=== PATIENT | female | born 1935 | race Caucasian/White ===

== ENCOUNTER 2019-06-08 07:34 | Day surgery (SDC) | payer MEDICARE ==
[2019-06-07 09:44] VITALS: BMI 27.4
[~2019-06-08 07:34] MED LIST: SODIUM CHLORIDE 0.9% 1,000 ML IV SCH
[2019-06-08] MEDS ORDERED: LACTATED RINGERS 1,000 ML IV SCH (08:15)
[2019-06-08 08:18] VITALS: TEMP 97.6
[2019-06-08] MEDS ORDERED: PROPOFOL 10 MG/ML 20 ML VIAL IV ONE (08:57)
[2019-06-08 09:22] LABS: Calcium 9.5 mg/dL (8.4-10.2); Potassium 2.9 mmol/L (3.5-5.1)
--- NOTE | 2019-06-08 09:43 | ECHOT ---
TRANSESOPHAGEAL ECHOCARDIOGRAM PERFORMING PHYSICIAN: Alfonso Herron MD. PROCEDURE PERFORMED: Transesophageal echocardiogram. INDICATION: Rule out intracardiac thrombus before cardioversion. COMPLICATION: None. LEVEL OF SEDATION: Deep sedation was performed using propofol with LONG LINES OPERATOR in the room. PROCEDURE DESCRIPTION: After obtaining an informed consent, the patient was brought to the recovery area. Pulse oximetry and heart rate monitors were attached to the patient. The patient subsequently was turned into left lateral position. Subsequently the transesophageal echocardiogram was advanced through the bite guard to the mid esophagus where 2D echocardiogram images, color Doppler images, continuous-wave and pulse wave Dopplers were obtained from multiple angles. The procedure was completed without any complication. FINDINGS: The left ventricular dimension and systolic function appeared to be within normal limits. The right ventricle appeared to be mildly dilated. The left atrium is mildly dilated and right atrium is severely dilated. The left atrial appendage appeared to be free from any thrombus. The interatrial septum appeared to be intact without any evidence of shunt. The aortic valve is trileaflet valve without stenosis or regurgitation. The mitral valve appeared to be repaired valve with moderate MR. There was severe tricuspid regurgitation seen. The pulmonary artery systolic pressure was not calculated. CONCLUSION: 1. Intact left atrial appendage without any evidence of thrombus. 2. No any evidence of intracardiac thrombus. 3. Intact interatrial septum without any evidence of shunt. 4. Normal left ventricular dimension and systolic function. 5. Normal right ventricular dimension and systolic function. 6. Mild left atrial dilatation and severe atrial dilatation. 7. Trileaflet aortic valve without stenosis or insufficiency. The aortic valve is calcified. 8. Repaired mitral valve with moderate mitral regurgitation. 9. Severe tricuspid regurgitation. 10.No evidence of pericardial effusion. MMODL / IJN: [id number] /
--- NOTE | 2019-06-08 09:47 | CE ---
CARDIAC ELECTROPHYSIOLOGY REPORT CARDIOVERSION: DATE OF SERVICE: June 08, 2019. PERFORMING PHYSICIAN: Alfonso Herron MD. PROCEDURE PERFORMED: Cardioversion. COMPLICATION: None. LEVEL OF SEDATION: Deep sedation was performed using propofol with WEAVER WIRE LOOM in the room. PROCEDURE DESCRIPTION: After LATISHA was performed and left atrial appendage thrombus and any intracardiac thrombus was ruled out, we did pursue with cardioversion. The patient cardioverted from atrial fibrillation to normal sinus mechanism using 200 joules on first attempt. CONCLUSION: Successful cardioversion of atrial fibrillation to normal sinus mechanism using 200 joules on first attempt. MMODL / IJN: [id number] /
[2019-06-08 10:41] VITALS: BP 101/58; PULSE 52; RESP 18
== END 2019-06-08 11:00 | disposition home or self-care (01) ==
LOC: CATHCVL 07:34
PROVIDERS: ATTEND Internal Medicine Interventional Cardiology
DX: I48.91 Unspecified atrial fibrillation (principal); I08.3 Combined rheumatic disorders of mitral, aortic and tricuspid valves
CPT/HCPCS: 93312; 93320; 93325; 92960; 80048; J2704

== ENCOUNTER 2019-06-26 09:47 | Inpatient (IN) | payer MEDICARE ==
--- NOTE | 2019-06-26 10:41 | XR ---
EXAMINATION TYPE: XR chest 2V DATE OF EXAM: 06/26/2019 COMPARISON: 01/11/2011 HISTORY: 83-year-old female CHF TECHNIQUE: Frontal and lateral views FINDINGS: Median sternotomy wires with annuloplasty ring. Heart mild to moderately enlarged. Diffuse interstiti al density. Small left greater than right pleural effusions with bibasilar opacity. IMPRESSION: 1. Correlate for CHF with pulmonary vascular congestion. 2. Small left greater than right pleural effusions with adjacent atelectasis and/or consolidation.
[2019-06-26 11:04] LABS: Anisocytosis Slight; HCT 40.2 % (34.0-46.0); HGB 12.5 gm/dL (11.4-16.0); Hypochromasia Marked; MCH 26.8 pg (25.0-35.0); MCHC 31.2 g/dL (31.0-37.0); Mean Platelet Volume 9.5; Platelet Count 165 k/uL (150-450); RBC 4.68 m/uL (3.80-5.40); RDW 17.2 % (11.5-15.5); WBC 6.1 k/uL (3.8-10.6)
[2019-06-26 11:14] LABS: Albumin 3.6 g/dL (3.5-5.0); Calcium 9.2 mg/dL (8.4-10.2); Phosphorus 3.7 mg/dL (2.5-4.5); Potassium 3.6 mmol/L (3.5-5.1); Total Bilirubin 2.7 mg/dL (0.2-1.3); Total Protein 6.2 g/dL (6.3-8.2)
[2019-06-26] MEDS ORDERED: NALOXONE 0.4 MG/ML 1 ML VIAL IV PRN (11:29)
[2019-06-26] MEDS ORDERED: CALCIUM CARBONATE 500 MG CHEWABLE PO PRN (11:29)
[2019-06-26] MEDS ORDERED: traMADol 50 MG TAB PO PRN (11:29)
[2019-06-26] MEDS ORDERED: ONDANSETRON 4 MG/2 ML VIAL IVP PRN (11:29)
[2019-06-26] MEDS ORDERED: LACTULOSE 20 GM/30 ML CUP PO PRN (11:29)
[2019-06-26] MEDS ORDERED: MELATONIN 3 MG TABLET PO PRN (11:29)
[2019-06-26] MEDS ORDERED: ACETAMINOPHEN TAB 325 MG TAB PO PRN (11:29)
[2019-06-26] MEDS: POTASSIUM CHLORIDE ER 20 MEQ TAB.ER PO SCH (14:16)
[2019-06-26] MEDS: FUROSEMIDE 100 MG in SODIUM CHLORIDE 0.9% 90 ML IV SCH ×2 (14:16→22:31)
[2019-06-26] MEDS: METOPROLOL TARTRATE 12.5 MG TAB PO SCH ×2 (15:47→21:17)
--- NOTE | 2019-06-26 16:19 | P.HPIM ---
History of Present Illness H&P Date: 06/26/19 Chief Complaint: Short of breath History of presenting complaint: This is a very pleasant 83-year-old patient follows with PCP Dr. Quinonez and heater helper Dr. Herron. Chronic stable medical conditions include, atrial fibrillation depression, COPD, hypertension, coronary artery disease. Patient was sent in from the office of Dr. Merritt after patient progressively has been getting more and more short of breath. No bruits uses 3-4 pillows sometimes even sits up and sleeps. Very slight cough. No fever no chills. Increasing swelling of the lower extremity. Going up to the thighs. Short of breath at rest. Decided to come in. No chest pain. Review of systems: GEN.: Tired EYES: None HEENT: None NECK: None RESPIRATORY: As above CARDIOVASCULAR: As above GASTROINTESTINAL: None GENITOURINARY: None MUSCULOSKELETAL: None LYMPHATICS: None HEMATOLOGICAL: None PSYCHIATRY: A bit anxious NEUROLOGICAL: None Past medical history to include: Atrial fibrillation, COPD, hypertension, coronary artery disease with a bypass Social history: Patient smoked on and off for about 20 years stopped smoking a while ago. Lives with her . No symptoms in alcohol history. Family history: Reviewed, noncontributory to presentation Physical examination: VITAL SIGNS: 97.4, 89, 18, 100/54, 96% on room air] GENERAL: [BMI 28.9, sitting up in bed, short of breath. EYES: Pupils equal. Conjunctiva normal. HEENT: External appearance of nose and ears normal, oral cavity grossly normal. NECK: JVD raised; masses not palpable. HEART: Heart sounds irregular; edema present. LUNGS: Respiratory rate increased; decreased at bases. ABDOMEN: Soft, nontender, liver spleen not palpable, no masses palpable. PSYCH: Alert and oriented x3; mood and affect slightly anxiousl. NEUROLOGICAL: Cranial nerves grossly intact; no facial asymmetry, power and sensation grossly intact. 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 LYMPHATICS: No lymph nodes palpable in the axilla and neck INVESTIGATIONS, reviewed in the clinical context: White count 6.1 hemoglobin 12.5 potassium 3.6 bun 23 creatinine 1.11 proBNP 4790 TSH 1.4 Chest x-ray film personally reviewed by me-cardiomegaly pleural effusion left greater than right and venous prominence Assessment: -Acute on chronic congestive heart failure exacerbation, EF not known -Coronary artery disease a prior history of coronary bypass -Persistent atrial fibrillation, chronically on eliquis -COPD -Essential hypertension - Plan: Patient be started on a Lasix drip 10 mg an hour. Strict I's and O's will be done. Other home medications resumed. Blood pressures running on the lower side. Trial cut back Lopressor 12.5--3 times a day. Cardiology is consulted. Care was discussed with the patient. Question answered. Follow I's closely. Patient is on eliquis. Order 2-D echocardiogram Past Medical History Past Medical History: Atrial Fibrillation, COPD, Hypertension Additional Past Medical History / Comment(s): irregular heart rate, shortness of breath. [email or web address] History of Any Multi-Drug Resistant Organisms: None Reported Past Surgical History: Coronary Bypass/CABG Additional Past Surgical History / Comment(s): 12/07/10 CABG and heart valve ring installed by dr carbajal Past Anesthesia/Blood Transfusion Reactions: No Reported Reaction Smoking Status: Former smoker - Past Family History Mother Family Medical History: No Reported History Medications and Allergies Home Medications Medication Instructions Recorded Confirmed Type Apixaban [Eliquis] 2.5 mg PO BID 06/07/19 06/26/19 History Atorvastatin [Lipitor] 10 mg PO HS 06/07/19 06/26/19 History Diltiazem HCl 60 mg PO Q8H 06/07/19 06/26/19 History Famotidine [Pepcid] 20 mg PO BID 06/07/19 06/26/19 History Ferrous Sulfate [Iron (65 MG 325 mg PO DAILY 06/07/19 06/26/19 History Elemental)] Furosemide [Lasix] 40 mg PO BID 06/07/19 06/26/19 History Metoprolol Tartrate [Lopressor] 150 mg PO BID 06/07/19 06/26/19 History Potassium Chloride [Klor-Con 20] 20 meq PO DAILY 06/07/19 06/26/19 History Allergies Allergy/AdvReac Type Severity Reaction Status Date / Time No Known Allergies Allergy Verified 06/26/19 11:46 Physical Exam Vitals: Intake and Output 06/25/19 06/26/19 06/26/19 22:59 06:59 14:59 Other: # Voids 1 # Bowel Movements 0 Weight 71.7 kg Results CBC & Chem 7: 06/26/19 10:37 04/28/20 10:41 Labs: Abnormal Lab Results - Last 24 Hours (Table) 06/26/19 06/26/19 Range/Units 10:37 10:41 RDW 17.2 H (11.5-15.5) % BUN 23 H (7-17) mg/dL Creatinine 1.11 H (0.52-1.04) mg/dL Glucose 140 H (74-99) mg/dL Total Bilirubin 2.7 H (0.2-1.3) mg/dL Total Protein 6.2 L (6.3-8.2) g/dL
[2019-06-26] MEDS ORDERED: METOPROLOL TARTRATE 50 MG TAB PO SCH (21:00)
[2019-06-26] MEDS ORDERED: FUROSEMIDE 40 MG TAB PO SCH (21:00)
[2019-06-26] MEDS: ATORVASTATIN 10 MG TAB PO SCH (21:17)
[2019-06-26] MEDS: APIXABAN 2.5 MG TABLET PO SCH (21:17)
[2019-06-26] MEDS: FAMOTIDINE 20 MG TAB PO SCH (21:17)
[2019-06-27] MEDS: METOPROLOL TARTRATE 12.5 MG TAB PO SCH (08:13)
[2019-06-27] MEDS: FAMOTIDINE 20 MG TAB PO SCH (08:13)
[2019-06-27] MEDS: APIXABAN 2.5 MG TABLET PO SCH ×2 (08:14→21:06)
[2019-06-27] MEDS: FERROUS SULFATE 325 MG TAB PO SCH (08:14)
[2019-06-27] MEDS: POTASSIUM CHLORIDE ER 20 MEQ TAB.ER PO SCH (08:14)
[2019-06-27] MEDS ORDERED: SPIRONOLACTONE 25 MG TAB PO SCH (10:30)
[2019-06-27 11:01] VITALS: BMI 28.5
--- NOTE | 2019-06-27 12:53 | P.PN ---
<Marilu Ramey - Last Filed: 06/27/19 11:30> Subjective This is Marilu Ramey PA-C scribing on behalf of Dr. Mack The patient was interviewed and examined by Dr. Mack HPI Patient is a 83-year-old female with a history significant for atrial fibrillation, COPD, hypertension, CAD status post CABG, valvular heart disease status post mitral valve repair, former smoker who was directly admitted by Dr. Herron for treatment of diastolic heart failure. She has been started on a Lasix drip. She has lost about 1 kg. Her breathing has improved. She is laying flat in bed. Still feels that her belly is bloated. EXAMINATION: Patient is afebrile, pulse in the 100s, respirations 16, blood pressure 119/70, oxygen saturation 99% on [address] Mack and examined the patient Lungs are clear to auscultation bilaterally Heart is irregular, no audible murmurs prominent JVD abdomen distended Mild lower extremity edema REVIEW OF LABS, ECG & MEDICAL DATA WBC 6.1, hemoglobin 12.5, platelets 165, potassium 3.6, BUN 23, creatinine 1.11 BMP 4790 TSH within normal limits Chest x-ray shows pulmonary vascular congestion, small left greater than right pleural effusions Recent LATISHA shows normal LV size and function, normal RV size and function, moderate MR, severe TR IMPRESSION / ASSESSMENT: Progressive dyspnea and weight gain secondary to acute CHF exacerbation secondary to diastolic dysfunction recent LATISHA showing preserved LV systolic function History of atrial fibrillation, rates in the 100s, anticoagulated with eliquis COPD Hypertension CAD status post CABG history of mitral valve repair Former smoker PLAN: Continue Lasix drip Add spironolactone 25 mg daily to stop potassium supplement Increase metoprolol to 50 mg 3 times a day Monitor daily BMP and magnesium Monitor daily weights and I and O Objective - Vital Signs Vital signs: Vital Signs Temp 97.8 F 06/27/19 08:00 Pulse 101 H 06/27/19 08:00 Resp 16 06/27/19 08:00 BP 119/78 06/27/19 08:00 Pulse Ox 99 06/27/19 08:00 Intake & Output 06/26/19 06/27/19 06/27/19 18:59 06:59 18:59 Intake Total 120 82.5 240 Output Total 400 1101 Balance -280 -1018.5 240 Weight 71.7 kg 70.8 kg Intake: Intake, IV Titration 82.5 Amount Furosemide 100 mg In 82.5 Sodium Chloride 0.9% 90 ml @ 10 MG/HR 10 mls/hr IV .Q10H [facility] Rx#: [id number] Oral 120 240 Output: Urine 400 1101 Other: Voiding Method Toilet # Voids 0 1 # Bowel Movements 0 - Labs CBC & Chem 7: 06/26/19 10:37 06/26/19 10:41 Labs: Abnormal Lab Results - Last 24 Hours (Table) 06/26/19 06/26/19 Range/Units 10:37 10:41 RDW 17.2 H (11.5-15.5) % BUN 23 H (7-17) mg/dL Creatinine 1.11 H (0.52-1.04) mg/dL Glucose 140 H (74-99) mg/dL Total Bilirubin 2.7 H (0.2-1.3) mg/dL Total Protein 6.2 L (6.3-8.2) g/dL <Bossman Mack - Last Filed: 06/27/19 12:53> Objective - Vital Signs Vital signs: Vital Signs Temp 98 F 06/27/19 11:10 Pulse 118 H 06/27/19 11:10 Resp 18 06/27/19 11:10 BP 104/61 06/27/19 11:10 Pulse Ox 99 06/27/19 11:10 Intake & Output 06/26/19 06/27/19 06/27/19 18:59 06:59 18:59 Intake Total 120 82.5 240 Output Total 400 1101 725 Balance -280 -1018.5 -485 Weight 71.7 kg 70.8 kg 70.8 kg Intake: Intake, IV Titration 82.5 Amount Furosemide 100 mg In 82.5 Sodium Chloride 0.9% 90 ml @ 10 MG/HR 10 mls/hr IV .Q10H [facility] Rx#: [id number] Oral 120 240 Output: Urine 400 1101 725 Other: Voiding Method Toilet Toilet # Voids 0 1 # Bowel Movements 0 - Labs CBC & Chem 7: 06/26/19 10:37 06/26/19 10:41
--- NOTE | 2019-06-27 16:01 | P.PN ---
Progress Note - Text Progress Note Date: 06/27/19 Chief Complaint: Short of breath History of presenting complaint: This is a very pleasant 83-year-old patient follows with PCP Dr. Quinonez and dopster Dr. Herron. Chronic stable medical conditions include, atrial fibrillation depression, COPD, hypertension, coronary artery disease. Patient was sent in from the office of Dr. Merritt after patient progressively has been getting more and more short of breath. No bruits uses 3-4 pillows sometimes even sits up and sleeps. Very slight cough. No fever no chills. Increasing swelling of the lower extremity. Going up to the thighs. Short of breath at rest. Decided to come in. No chest pain. Admitted with-acute CHF exacerbation. Start him on Lasix drip. Today-on a Lasix drip. Making good urine. Breathing slightly better. Did tolerate some diet. A. fib heart rate into 1 teens today. Review of systems: Was done for constitutional, cardiovascular, GI, pulmonary. relevant finding as above Active Medications Acetaminophen (Tylenol Tab) 650 mg PO Q6HR PRN PRN Reason: Mild Pain or Fever > 100.5 Apixaban (Eliquis) 2.5 mg PO BID [facility] Last Admin: 06/27/19 08:14 Dose: 2.5 mg Documented by: Atorvastatin Calcium (Lipitor) 10 mg PO HS [facility] Last Admin: 06/26/19 21:17 Dose: 10 mg Documented by: Calcium Carbonate/Glycine (Tums) 1,000 mg PO Q4HR PRN PRN Reason: Dyspepsia Famotidine (Pepcid) 20 mg PO DAILY [facility] Ferrous Sulfate (Feosol) 325 mg PO DAILY [facility] Last Admin: 06/27/19 08:14 Dose: 325 mg Documented by: Furosemide 100 mg/ Sodium (Chloride) 100 mls @ 10 mls/hr IV .Q10H [facility] Last Admin: 06/26/19 22:31 Dose: 10 mg/hr, 10 mls/hr Documented by: Lactulose (Cephulac) 20 gm PO DAILY PRN PRN Reason: Constipation Melatonin (Melatonin) 3 mg PO HS PRN PRN Reason: Insomnia Metoprolol Tartrate (Lopressor) 50 mg PO TID [facility] Naloxone HCl (Narcan) 0.2 mg IV Q2M PRN PRN Reason: Opioid Reversal Ondansetron HCl (Zofran) 4 mg IVP Q8HR PRN PRN Reason: Nausea And Vomiting Spironolactone (Aldactone) 25 mg PO DAILY [facility] Last Admin: 06/27/19 10:39 Dose: 25 mg Documented by: Tramadol HCl (Ultram) 50 mg PO Q6H PRN PRN Reason: Moderate Pain Physical examination: VITAL SIGNS: 98, 118, 18, 104/61, 99% on 2 L GENERAL: Propped up, slightly improved breathing EYES: Pupils equal. Conjunctiva normal. HEENT: External appearance of nose and ears normal, oral cavity grossly normal. NECK: JVD raised; masses not palpable. HEART: Heart sounds irregular; edema present. LUNGS: Respiratory rate increased; decreased at bases. ABDOMEN: Soft, nontender, liver spleen not palpable, no masses palpable. PSYCH: Alert and oriented x3; mood and affect slightly anxiousl. 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 chronically on eliquis -COPD -Essential hypertension -Moderate mitral regurgitation, severe tricuspid regurgitation Plan: Discussed with the patient. Continue with IV Lasix drip. Responding to the same. Does of Lopressor increased by cardiology. Follow electrolytes closely.
[2019-06-27] MEDS: METOPROLOL TARTRATE 50 MG TAB PO SCH ×2 (17:08→21:06)
[2019-06-27] MEDS: FUROSEMIDE 100 MG in SODIUM CHLORIDE 0.9% 90 ML IV SCH ×2 (17:08→21:05)
[2019-06-27] MEDS: ATORVASTATIN 10 MG TAB PO SCH (21:06)
[2019-06-28] MEDS: FUROSEMIDE 100 MG in SODIUM CHLORIDE 0.9% 90 ML IV SCH ×2 (05:22→16:46)
[2019-06-28 07:45] LABS: Calcium 9.1 mg/dL (8.4-10.2); Magnesium 1.9 mg/dL (1.6-2.3); Potassium 3.1 mmol/L (3.5-5.1)
[2019-06-28] MEDS: SPIRONOLACTONE 25 MG TAB PO SCH (09:17)
[2019-06-28] MEDS: FERROUS SULFATE 325 MG TAB PO SCH (09:17)
[2019-06-28] MEDS: METOPROLOL TARTRATE 50 MG TAB PO SCH ×3 (09:17→20:08)
[2019-06-28] MEDS: FAMOTIDINE 20 MG TAB PO SCH (09:17)
[2019-06-28] MEDS: APIXABAN 2.5 MG TABLET PO SCH ×2 (09:17→20:09)
[2019-06-28] MEDS ORDERED: Potassium Replacement Protocol 1 EACH MISC MISCELLANE PRN (12:32)
[2019-06-28] MEDS: POTASSIUM CHLORIDE ER 20 MEQ TAB.ER PO SCH ×3 (13:18→18:00)
--- NOTE | 2019-06-28 13:22 | XR ---
EXAMINATION TYPE: XR chest 2V DATE OF EXAM: 06/28/2019 COMPARISON: Chest x-ray 2 days ago. HISTORY: CHF progress study. TECHNIQUE: Frontal and lateral views of the chest are obtained. FINDINGS: Overlying sternal wires along with metallic cardiac valvular ring redemonstrated. Persiste nt cardiomegaly with atherosclerotic thoracic aorta. Background chronic parenchymal change with impro tito interstitial markings or edema bilaterally. Small left pleural effusion remains present. Persiste nt bibasilar opacities. Osseous structures remain demineralized. IMPRESSION: Improved bilateral diffuse interstitial edema and/or infiltrates. Persistent cardiomegal y with small left pleural effusion and bibasilar acute atelectasis and/or infiltrates.
[2019-06-28] MEDS: ATORVASTATIN 10 MG TAB PO SCH (20:09)
--- NOTE | 2019-06-28 20:23 | P.PN ---
Progress Note - Text Progress Note Date: 06/28/19 Chief Complaint: Short of breath History of presenting complaint: This is a very pleasant 83-year-old patient follows with PCP Dr. Quinonez and porcelain enamel sprayer Dr. Herron. Chronic stable medical conditions include, atrial fibrillation depression, COPD, hypertension, coronary artery disease. Patient was sent in from the office of Dr. Merritt after patient progressively has been getting more and more short of breath. No bruits uses 3-4 pillows sometimes even sits up and sleeps. Very slight cough. No fever no chills. Increasing swelling of the lower extremity. Going up to the thighs. Short of breath at rest. Decided to come in. No chest pain. Admitted with-acute CHF exacerbation. Start him on Lasix drip. Today-remains a Lasix drip. Breathing much improved. Edema was gone down. Over 2000 mL in negative fluid balance. Hearted is still up with A. fib in the 1 teens. Eating fair Review of systems: Was done for constitutional, cardiovascular, GI, pulmonary. relevant finding as above Active Medications Acetaminophen (Tylenol Tab) 650 mg PO Q6HR PRN PRN Reason: Mild Pain or Fever > 100.5 Apixaban (Eliquis) 2.5 mg PO BID [facility] Last Admin: 06/28/19 20:09 Dose: 2.5 mg Documented by: Atorvastatin Calcium (Lipitor) 10 mg PO HS [facility] Last Admin: 06/28/19 20:09 Dose: 10 mg Documented by: Calcium Carbonate/Glycine (Tums) 1,000 mg PO Q4HR PRN PRN Reason: Dyspepsia Famotidine (Pepcid) 20 mg PO DAILY [facility] Last Admin: 06/28/19 09:17 Dose: 20 mg Documented by: Ferrous Sulfate (Feosol) 325 mg PO DAILY [facility] Last Admin: 06/28/19 09:17 Dose: 325 mg Documented by: Furosemide 100 mg/ Sodium (Chloride) 100 mls @ 10 mls/hr IV .Q10H [facility] Last Admin: 06/28/19 16:46 Dose: 10 mg/hr, 10 mls/hr Documented by: Lactulose (Cephulac) 20 gm PO DAILY PRN PRN Reason: Constipation Melatonin (Melatonin) 3 mg PO HS PRN PRN Reason: Insomnia Metoprolol Tartrate (Lopressor) 50 mg PO TID [facility] Last Admin: 06/28/19 20:08 Dose: 50 mg Documented by: Miscellaneous Information (Potassium Per Protocol) 1 each MISCELLANE DAILY PRN; Protocol PRN Reason: Per Protocol Naloxone HCl (Narcan) 0.2 mg IV Q2M PRN PRN Reason: Opioid Reversal Ondansetron HCl (Zofran) 4 mg IVP Q8HR PRN PRN Reason: Nausea And Vomiting Spironolactone (Aldactone) 50 mg PO DAILY [facility] Last Admin: 06/28/19 09:17 Dose: 50 mg Documented by: Tramadol HCl (Ultram) 50 mg PO Q6H PRN PRN Reason: Moderate Pain Physical examination: VITAL SIGNS: 97.5, 95, 14, 115/70, 95% on room air GENERAL: Sitting up, breathing better EYES: Pupils equal. Conjunctiva normal. HEENT: External appearance of nose and ears normal, oral cavity grossly normal. NECK: JVD raised; masses not palpable. HEART: Heart sounds irregular; decreased edema. LUNGS: Respiratory rate increased; decreased at bases. ABDOMEN: Soft, nontender, liver spleen not palpable, no masses palpable. PSYCH: Alert and oriented x3; mood and affect slightly anxiousl. 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 INVESTIGATIONS, reviewed in the clinical context: Potassium 3.1 bun 21 creatinine 1.0 Chest x-ray film personally reviewed by me-showing pleural effusion, with some improvement Previous testing White count 6.1 hemoglobin 12.5 potassium 3.6 bun 23 creatinine 1.11 proBNP 4790 TSH 1.4 Chest x-ray film personally reviewed by me-cardiomegaly pleural effusion left greater than right and venous prominence Assessment: -Acute on chronic congestive heart failure exacerbation, from diastolic dysfunction, with recent LATISHA showing preserved LV function.(Exact EF not known), POA, slow to respond -Coronary artery disease a prior history of coronary bypass -Persistent atrial fibrillation, heart rate uncontrolled . chronically on eliquis -COPD -Essential hypertension -Moderate mitral regurgitation, severe tricuspid regurgitation Plan: Continue with IV Lasix drip. Dose of Lopressor was increased yesterday to 50 mg 3 times a day.. Follow with cardiology. Discussed with the patient.
[2019-06-29] MEDS: FUROSEMIDE 100 MG in SODIUM CHLORIDE 0.9% 90 ML IV SCH ×3 (01:56→23:08)
[2019-06-29 06:32] LABS: Calcium 9.6 mg/dL (8.4-10.2); Magnesium 1.9 mg/dL (1.6-2.3); Potassium 3.9 mmol/L (3.5-5.1)
[2019-06-29] MEDS ORDERED: METOPROLOL TARTRATE 50 MG TAB PO STA (09:56)
[2019-06-29] MEDS: FAMOTIDINE 20 MG TAB PO SCH (10:31)
[2019-06-29] MEDS: APIXABAN 2.5 MG TABLET PO SCH ×2 (10:31→20:25)
[2019-06-29] MEDS: FERROUS SULFATE 325 MG TAB PO SCH (10:31)
[2019-06-29] MEDS: SPIRONOLACTONE 25 MG TAB PO SCH (10:31)
[2019-06-29] MEDS: METOPROLOL TARTRATE 50 MG TAB PO SCH ×2 (10:32→20:25)
--- NOTE | 2019-06-29 12:00 | P.PN ---
<Marilu Ramey - Last Filed: 06/28/19 10:45> Subjective This is Marilu Ramey PA-C scribing on behalf of Dr. Mack The patient was interviewed and examined by Dr. Mack HPI Patient is a 83-year-old female with a history significant for atrial fibrillation, COPD, hypertension, CAD status post CABG, valvular heart disease status post mitral valve repair, former smoker who was directly admitted by Dr. Herron for treatment of diastolic heart failure. She has been on a Lasix drip. Yesterday we added spironolactone and increased her metoprolol for rate control. She is diuresing well. She has lost another kilogram and a half. She states her breathing has improved. Still has some edema. EXAMINATION: Patient is afebrile, pulse in the 80s, respirations 18, blood pressure 104/66, oxygen saturation 96% on [address] Mack and examined the patient Lungs are clear to auscultation bilaterally Heart is irregular, no audible murmurs Engorged neck veins sitting up abdomen distended Mild lower extremity edema, pitting edema of her thighs REVIEW OF LABS, ECG & MEDICAL DATA Sodium 139, potassium 3.1, BUN 21, creatinine 1.0 TSH within normal limits Chest x-ray shows pulmonary vascular congestion, small left greater than right pleural effusions Recent LATISHA shows normal LV size and function, normal RV size and function, moderate MR, severe TR IMPRESSION / ASSESSMENT: Progressive dyspnea and weight gain secondary to acute CHF exacerbation secondary to diastolic dysfunction, improving recent LATISHA showing preserved LV systolic function History of atrial fibrillation, rates controlled, anticoagulated with eliquis COPD Hypertension CAD status post CABG history of mitral valve repair Former smoker PLAN: Continue Lasix drip Increase spironolactone to 50 mg daily Continue metoprolol 50 mg 3 times a day Monitor daily BMP and magnesium Monitor daily weights and I and O Objective - Vital Signs Vital signs: Vital Signs Temp 97.4 F L 06/28/19 04:00 Pulse 83 06/28/19 04:00 Resp 18 06/28/19 04:00 BP 104/66 06/28/19 04:00 Pulse Ox 96 06/28/19 04:00 Intake & Output 04/29/20 04/30/20 04/30/20 18:59 06:59 18:59 Intake Total 1050 122.333 240 Output Total 1475 1750 300 Balance -425 -1627.667 -60 Weight 70.8 kg 69.3 kg Intake: Intake, IV Titration 100 122.333 Amount Furosemide 100 mg In 100 122.333 Sodium Chloride 0.9% 90 ml @ 10 MG/HR 10 mls/hr IV .Q10H [facility] Rx#: [id number] Oral 950 240 Output: Urine 1475 1750 300 Other: Voiding Method Toilet Toilet # Voids 1 - Labs CBC & Chem 7: 06/26/19 10:37 06/28/19 06:29 Labs: Abnormal Lab Results - Last 24 Hours (Table) 06/28/19 Range/Units 06:29 Potassium 3.1 L (3.5-5.1) mmol/L BUN 21 H (7-17) mg/dL Glucose 118 H (74-99) mg/dL <Bossman Mack - Last Filed: 06/29/19 12:00> Objective - Vital Signs Vital signs: Vital Signs Temp 97.4 F L 06/29/19 04:00 Pulse 99 06/29/19 04:00 Resp 18 06/29/19 04:00 BP 114/73 06/29/19 04:00 Pulse Ox 92 L 06/29/19 04:00 Intake & Output 06/28/19 06/29/19 06/29/19 18:59 06:59 18:59 Intake Total 820 541.667 325.667 Output Total 1700 1900 500 Balance -880 -1358.333 -174.333 Weight 68.8 kg Intake: Intake, IV Titration 100 91.667 85.667 Amount Furosemide 100 mg In 100 91.667 85.667 Sodium Chloride 0.9% 90 ml @ 10 MG/HR 10 mls/hr IV .Q10H [facility] Rx#: [id number] Oral 720 450 240 Output: Urine 1700 1900 500 Other: Voiding Method Toilet Toilet # Voids 1 1 1 # Bowel Movements 0 - Labs CBC & Chem 7: 06/26/19 10:37 06/29/19 05:50 Labs: Abnormal Lab Results - Last 24 Hours (Table) 06/29/19 Range/Units 05:50 Carbon Dioxide 35 H (22-30) mmol/L BUN 25 H (7-17) mg/dL Glucose 126 H (74-99) mg/dL
--- NOTE | 2019-06-29 12:01 | P.PN ---
<Marilu Ramey - Last Filed: 06/29/19 10:12> Subjective This is Marilu Ramey PA-C scribing on behalf of Dr. Mack The patient was interviewed and examined by Dr. Mack HPI Patient is a 83-year-old female with a history significant for atrial fibrillation, COPD, hypertension, CAD status post CABG, valvular heart disease status post mitral valve repair, former smoker who was directly admitted by Dr. Herron for treatment of diastolic heart failure. She has been on a Lasix drip. Yesterday we increase spironolactone to 50 mg daily. she is diuresing well. Potassium has improved, BUN and creatinine are stable. Breathing continues to improve. EXAMINATION: Patient is afebrile, pulse is in the 100s, respirations 18, blood pressure 114/73, oxygen saturation 90% on room air Dr. Mack and examined the patient Lungs are clear to auscultation bilaterally Heart is irregular, tachycardic, systolic murmur audible Engorged neck veins Mild lower extremity edema bilaterally REVIEW OF LABS, ECG & MEDICAL DATA Potassium 3.9, BUN 25, creatinine 1.01 Chest x-ray shows pulmonary vascular congestion, small left greater than right pleural effusions Recent LATISHA shows normal LV size and function, normal RV size and function, moderate MR, severe TR IMPRESSION / ASSESSMENT: Progressive dyspnea and weight gain secondary to acute CHF exacerbation secondary to diastolic dysfunction, improving recent LATISHA showing preserved LV systolic function History of atrial fibrillation, rates in the 90s to 100s, anticoagulated with eliquis COPD Hypertension CAD status post CABG history of mitral valve repair Former smoker PLAN: Increase metoprolol to 100 mg twice a day for rate control, if her rates remained elevated, consider implantation of a biventricular pacemaker and subsequent AV node ablation Continue spironolactone Continue IV Lasix drip today, may switch to IV tomorrow Objective - Vital Signs Vital signs: Vital Signs Temp 97.4 F L 06/29/19 04:00 Pulse 99 06/29/19 04:00 Resp 18 06/29/19 04:00 BP 114/73 06/29/19 04:00 Pulse Ox 92 L 06/29/19 04:00 Intake & Output 06/28/19 06/29/19 06/29/19 18:59 06:59 18:59 Intake Total 820 541.667 240 Output Total 1700 1900 Balance -880 -1358.333 240 Weight 68.8 kg Intake: Intake, IV Titration 100 91.667 Amount Furosemide 100 mg In 100 91.667 Sodium Chloride 0.9% 90 ml @ 10 MG/HR 10 mls/hr IV .Q10H [facility] Rx#: [id number] Oral 720 450 240 Output: Urine 1700 1900 Other: Voiding Method Toilet Toilet # Voids 1 1 - Labs CBC & Chem 7: 06/26/19 10:37 06/29/19 05:50 Labs: Abnormal Lab Results - Last 24 Hours (Table) 06/29/19 Range/Units 05:50 Carbon Dioxide 35 H (22-30) mmol/L BUN 25 H (7-17) mg/dL Glucose 126 H (74-99) mg/dL <Bossman Mack - Last Filed: 06/29/19 12:01> Objective - Vital Signs Vital signs: Vital Signs Temp 97.4 F L 06/29/19 04:00 Pulse 99 06/29/19 04:00 Resp 18 06/29/19 04:00 BP 114/73 06/29/19 04:00 Pulse Ox 92 L 06/29/19 04:00 Intake & Output 06/28/19 06/29/19 06/29/19 18:59 06:59 18:59 Intake Total 820 541.667 325.667 Output Total 1700 1900 500 Balance -880 -1358.333 -174.333 Weight 68.8 kg Intake: Intake, IV Titration 100 91.667 85.667 Amount Furosemide 100 mg In 100 91.667 85.667 Sodium Chloride 0.9% 90 ml @ 10 MG/HR 10 mls/hr IV .Q10H [facility] Rx#: [id number] Oral 720 450 240 Output: Urine 1700 1900 500 Other: Voiding Method Toilet Toilet # Voids 1 1 1 # Bowel Movements 0 - Labs CBC & Chem 7: 06/26/19 10:37 06/29/19 05:50 Labs: Abnormal Lab Results - Last 24 Hours (Table) 06/29/19 Range/Units 05:50 Carbon Dioxide 35 H (22-30) mmol/L BUN 25 H (7-17) mg/dL Glucose 126 H (74-99) mg/dL
--- NOTE | 2019-06-29 17:33 | P.PN ---
Progress Note - Text Progress Note Date: 06/29/19 Chief Complaint: Short of breath History of presenting complaint: This is a very pleasant 83-year-old patient follows with PCP Dr. Quinonez and novelty candy maker Dr. Herron. Chronic stable medical conditions include, atrial fibrillation depression, COPD, hypertension, coronary artery disease. Patient was sent in from the office of Dr. Merritt after patient progressively has been getting more and more short of breath. No bruits uses 3-4 pillows sometimes even sits up and sleeps. Very slight cough. No fever no chills. Increasing swelling of the lower extremity. Going up to the thighs. Short of breath at rest. Decided to come in. No chest pain. Admitted with-acute CHF exacerbation. Atrial fibrillation-uncontrolled. Started on Lasix drip. Started on beta blockers. Today-remains a Lasix drip. Breathing continues to improve. Heart rate is still been up. Dose of Lopressor for the increased. Tolerating diet. Review of systems: Was done for constitutional, cardiovascular, GI, pulmonary. relevant finding as above Active Medications Acetaminophen (Tylenol Tab) 650 mg PO Q6HR PRN PRN Reason: Mild Pain or Fever > 100.5 Apixaban (Eliquis) 2.5 mg PO BID [facility] Last Admin: 06/29/19 10:31 Dose: 2.5 mg Documented by: Atorvastatin Calcium (Lipitor) 10 mg PO HS [facility] Last Admin: 06/28/19 20:09 Dose: 10 mg Documented by: Calcium Carbonate/Glycine (Tums) 1,000 mg PO Q4HR PRN PRN Reason: Dyspepsia Famotidine (Pepcid) 20 mg PO DAILY [facility] Last Admin: 06/29/19 10:31 Dose: 20 mg Documented by: Ferrous Sulfate (Feosol) 325 mg PO DAILY [facility] Last Admin: 06/29/19 10:31 Dose: 325 mg Documented by: Furosemide 100 mg/ Sodium (Chloride) 100 mls @ 10 mls/hr IV .Q10H [facility] Last Admin: 06/29/19 10:30 Dose: 10 mg/hr, 10 mls/hr Documented by: Lactulose (Cephulac) 20 gm PO DAILY PRN PRN Reason: Constipation Melatonin (Melatonin) 3 mg PO HS PRN PRN Reason: Insomnia Metoprolol Tartrate (Lopressor) 100 mg PO BID [facility] Miscellaneous Information (Potassium Per Protocol) 1 each MISCELLANE DAILY PRN; Protocol PRN Reason: Per Protocol Naloxone HCl (Narcan) 0.2 mg IV Q2M PRN PRN Reason: Opioid Reversal Ondansetron HCl (Zofran) 4 mg IVP Q8HR PRN PRN Reason: Nausea And Vomiting Spironolactone (Aldactone) 50 mg PO DAILY [facility] Last Admin: 06/29/19 10:31 Dose: 50 mg Documented by: Tramadol HCl (Ultram) 50 mg PO Q6H PRN PRN Reason: Moderate Pain Physical examination: VITAL SIGNS: 97.4, current 12, 14, 112/70, 95% on room air GENERAL: Laying in bed, breathing improved EYES: Pupils equal. Conjunctiva normal. HEENT: External appearance of nose and ears normal, oral cavity grossly normal. NECK: JVD raised; masses not palpable. HEART: Heart sounds irregular; decreased edema. LUNGS: Respiratory rate increased; decreased at bases. ABDOMEN: Soft, nontender, liver spleen not palpable, no masses palpable. PSYCH: Alert and oriented x3; mood and affect slightly anxiousl. 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 INVESTIGATIONS, reviewed in the clinical context: Potassium 3.9 creatinine 1.01 Previous testing White count 6.1 hemoglobin 12.5 potassium 3.6 bun 23 creatinine 1.11 proBNP 4790 TSH 1.4 Chest x-ray film personally reviewed by me-cardiomegaly pleural effusion left greater than right and venous prominence Assessment: -Acute on chronic congestive heart failure exacerbation, from diastolic dysfunction, with recent LATISHA showing preserved LV function.(Exact EF not known), POA, improving -Coronary artery disease a prior history of coronary bypass -Persistent atrial fibrillation, heart rate uncontrolled . chronically on eliquis -COPD -Essential hypertension -Moderate mitral regurgitation, severe tricuspid regurgitation Plan: Continue with IV Lasix drip. Lopressor increased 100 mg twice a day. Should be able to be switched over to oral Lasix tomorrow. Repeat labs.
[2019-06-29] MEDS: ATORVASTATIN 10 MG TAB PO SCH (20:25)
[2019-06-30] MEDS: FUROSEMIDE 100 MG in SODIUM CHLORIDE 0.9% 90 ML IV SCH (06:25)
[2019-06-30 06:51] LABS: Calcium 9.7 mg/dL (8.4-10.2); Magnesium 1.9 mg/dL (1.6-2.3); Potassium 3.8 mmol/L (3.5-5.1)
[2019-06-30 08:45] VITALS: RESP 18
[2019-06-30] MEDS: APIXABAN 2.5 MG TABLET PO SCH ×2 (08:52→20:58)
[2019-06-30] MEDS: FERROUS SULFATE 325 MG TAB PO SCH (08:52)
[2019-06-30] MEDS: METOPROLOL TARTRATE 50 MG TAB PO SCH ×2 (08:52→20:59)
[2019-06-30] MEDS: FAMOTIDINE 20 MG TAB PO SCH (08:52)
[2019-06-30] MEDS: SPIRONOLACTONE 25 MG TAB PO SCH (08:52)
--- NOTE | 2019-06-30 12:34 | XR ---
EXAMINATION TYPE: XR chest 2V DATE OF EXAM: 06/30/2019 HISTORY: f/u chf. REFERENCE: Previous study dated 06/28/2019. FINDINGS: There has been a midline sternotomy. The heart is enlarged. There is blunting of both CP angles. I could not exclude effusions. There cont inues to be bibasilar airspace disease which may have worsened very slightly from the previous study. IMPRESSION: 1. CARDIOMEGALY. 2. SMALL, BILATERAL EFFUSIONS. 3. BIBASILAR AIRSPACE DISEASE EITHER REPRESENTING ATELECTASIS OR EARLY INFILTRATE.
--- NOTE | 2019-06-30 14:05 | P.PN ---
Subjective Progress Note Date: 06/30/19 This is an 83-year-old female with history of atrial fibrillation, persistent, COPD, hypertension, coronary artery disease with prior bypass surgery, history of mitral valve repair, prior nicotine dependence, who follows with Dr. Merritt in the office. Patient diuresed well through the night last night, feels considerably better overall today. No peripheral edema and her lungs are clear. She continues to be in atrial fibrillation with a heart rate of 80, blood pressure 104/60. Sodium 139, potassium 3.8, BUN 27, creatinine 0.9. Objective - Vital Signs Vital signs: Vital Signs Temp 97.4 F L 06/30/19 11:40 Pulse 86 06/30/19 11:40 Resp 18 06/30/19 11:40 BP 111/74 06/30/19 11:40 Pulse Ox 95 06/30/19 11:40 Intake & Output 06/29/19 06/30/19 06/30/19 18:59 06:59 18:59 Intake Total 965.667 652.833 Output Total 750 2140 300 Balance 215.667 -1487.167 -300 Weight 67.5 kg Intake: Intake, IV Titration 85.667 172.833 Amount Furosemide 100 mg In 85.667 172.833 Sodium Chloride 0.9% 90 ml @ 10 MG/HR 10 mls/hr IV .Q10H [facility] Rx#: [id number] Oral 880 480 Output: Urine 750 2140 300 Other: Voiding Method Toilet Toilet Toilet # Voids 1 4 1 # Bowel Movements 0 0 - Exam PHYSICAL EXAMINATION: GENERAL: 83-year-old female in no acute distress at the time of my exa mination HEENT: Head is atraumatic, normocephalic. Pupils equal, round. Sclera anicteric. Conjunctiva are clear. Mucous membranes of the mouth are moist. Neck is supple. There is no elevated jugular venous pressure. No carotid bruit is heard. HEART EXAMINATION: R S1 and S2 irregularly irregular a systolic murmur is heard CHEST EXAMINATION: Lungs are clear to auscultation and precussion. No chest wall tenderness is noted on palpation or with deep breathing. ABDOMEN: Soft, nontender. Bowel sounds are heard. No organomegaly noted. EXTREMITIES: 2+ peripheral pulses with no evidence of peripheral edema and no calf tenderness noted. NEUROLOGIC patient is awake, alert and oriented 3 . - Labs CBC & Chem 7: 06/26/19 10:37 06/30/19 05:48 Labs: Abnormal Lab Results - Last 24 Hours (Table) 06/30/19 Range/Units 05:48 Chloride 97 L (98-107) mmol/L Carbon Dioxide 31 H (22-30) mmol/L BUN 27 H (7-17) mg/dL Glucose 108 H (74-99) mg/dL Assessment and Plan Plan: IMPRESSION and plan: #1 Progressive dyspnea and weight gain secondary to acute CHF exacerbation secondary to diastolic dysfunction, improving #2 recent LATISHA showing preserved LV systolic function #3 History of atrial fibrillation, persistent, rates in the 90s to 100s, anticoagulated with eliquis #4 COPD #5 Hypertension #6 CAD status post CABG #7 history of mitral valve repair #8 Former smoker Plan We will discontinue the IV Lasix drip, start the patient on Lasix 60 mg one tablet by mouth twice a day. Check her lytes BUN and creatinine in the morning. Plan for possible discharge home in 24-48 hours if stable. DNP note has been reviewed, I agree with a documented findings and plan of care. Patient was seen and examined.
--- NOTE | 2019-06-30 16:20 | P.PN ---
Progress Note - Text Progress Note Date: 06/30/19 Chief Complaint: Short of breath History of presenting complaint: This is a very pleasant 83-year-old patient follows with PCP Dr. 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 Herron. Chronic stable medical conditions include, atrial fibrillation depression, COPD, hypertension, coronary artery disease. Patient was sent in from the office of Dr. Merritt after patient progressively has been getting more and more short of breath. No bruits uses 3-4 pillows sometimes even sits up and sleeps. Very slight cough. No fever no chills. Increasing swelling of the lower extremity. Going up to the thighs. Short of breath at rest. Decided to come in. No chest pain. Admitted with-acute CHF exacerbation. Atrial fibrillation-uncontrolled. Started on Lasix drip. Started on beta blockers. Today-breathing much improved. Heart rate controlled. This afternoon being switched over to oral Lasix, by cardiology Review of systems: Was done for constitutional, cardiovascular, GI, pulmonary. relevant finding as above Active Medications Acetaminophen (Tylenol Tab) 650 mg PO Q6HR PRN PRN Reason: Mild Pain or Fever > 100.5 Apixaban (Eliquis) 2.5 mg PO BID [facility] Last Admin: 06/30/19 08:52 Dose: 2.5 mg Documented by: Atorvastatin Calcium (Lipitor) 10 mg PO HS [facility] Last Admin: 06/29/19 20:25 Dose: 10 mg Documented by: Calcium Carbonate/Glycine (Tums) 1,000 mg PO Q4HR PRN PRN Reason: Dyspepsia Famotidine (Pepcid) 20 mg PO DAILY [facility] Last Admin: 06/30/19 08:52 Dose: 20 mg Documented by: Ferrous Sulfate (Feosol) 325 mg PO DAILY [facility] Last Admin: 06/30/19 08:52 Dose: 325 mg Documented by: Furosemide (Lasix) 60 mg PO BID@0900,1600 [facility] Lactulose (Cephulac) 20 gm PO DAILY PRN PRN Reason: Constipation Melatonin (Melatonin) 3 mg PO HS PRN PRN Reason: Insomnia Metoprolol Tartrate (Lopressor) 100 mg PO BID [facility] Last Admin: 06/30/19 08:52 Dose: 100 mg Documented by: Miscellaneous Information (Potassium Per Protocol) 1 each MISCELLANE DAILY PRN; Protocol PRN Reason: Per Protocol Naloxone HCl (Narcan) 0.2 mg IV Q2M PRN PRN Reason: Opioid Reversal Ondansetron HCl (Zofran) 4 mg IVP Q8HR PRN PRN Reason: Nausea And Vomiting Spironolactone (Aldactone) 50 mg PO DAILY [facility] Last Admin: 06/30/19 08:52 Dose: 50 mg Documented by: Tramadol HCl (Ultram) 50 mg PO Q6H PRN PRN Reason: Moderate Pain Physical examination: VITAL SIGNS: 97.4, 86, 18, 111/74, 95% on room air GENERAL: Sitting at the edge of the bed, eating, breathing much improved EYES: Pupils equal. Conjunctiva normal. HEENT: External appearance of nose and ears normal, oral cavity grossly normal. NECK: JVD raised; masses not palpable. HEART: Heart sounds irregular; decreased edema. LUNGS: Respiratory rate normal; decreased at bases. ABDOMEN: Soft, nontender, liver spleen not palpable, no masses palpable. PSYCH: Alert and oriented x3; mood and affect slightly anxiousl. 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 INVESTIGATIONS, reviewed in the clinical context: Potassium 3.8 creatinine 0.97 Chest x-ray film personally reviewed by me-pleural effusion, lung stiles better Previous testing White count 6.1 hemoglobin 12.5 potassium 3.6 bun 23 creatinine 1.11 proBNP 4790 TSH 1.4 Chest x-ray film personally reviewed by me-cardiomegaly pleural effusion left greater than right and venous prominence Assessment: -Acute on chronic congestive heart failure exacerbation, from diastolic dysfunction, with recent LATISHA showing preserved LV function.(Exact EF not known), POA, improving -Coronary artery disease a prior history of coronary bypass -Persistent atrial fibrillation, heart rate now controlled. chronically on eliquis -COPD -Essential hypertension -Moderate mitral regurgitation, severe tricuspid regurgitation Plan: -Patient has been switched over to oral Lasix.. Discussed with the patient. Other medications to continue.
[2019-06-30] MEDS: FUROSEMIDE 20 MG TAB PO SCH (17:01)
[2019-06-30] MEDS: ATORVASTATIN 10 MG TAB PO SCH (20:59)
[2019-07-01] MEDS: FUROSEMIDE 20 MG TAB PO SCH (08:07)
[2019-07-01] MEDS: FAMOTIDINE 20 MG TAB PO SCH (08:07)
[2019-07-01] MEDS: SPIRONOLACTONE 25 MG TAB PO SCH (08:07)
[2019-07-01] MEDS: FERROUS SULFATE 325 MG TAB PO SCH (08:07)
[2019-07-01] MEDS: APIXABAN 2.5 MG TABLET PO SCH (08:07)
[2019-07-01] MEDS: METOPROLOL TARTRATE 50 MG TAB PO SCH (08:08)
--- NOTE | 2019-07-01 12:25 | P.PN ---
Subjective Progress Note Date: 07/01/19 This is an 83-year-old female with history of atrial fibrillation, persistent, COPD, hypertension, coronary artery disease with prior bypass surgery, history of mitral valve repair, prior nicotine dependence, who follows with Dr. Merritt in the office. Patient diuresed well through the night last night, feels considerably better overall today. No peripheral edema and her lungs are clear. She continues to be in atrial fibrillation with a heart rate of 80, blood pressure 104/60. Sodium 139, potassium 3.8, BUN 27, creatinine 0.9. June Patient seen and examined this morning, continues to do well, breathing is stable. Labs from today are pending. Objective - Vital Signs Vital signs: Vital Signs Temp 97.7 F 07/01/19 08:00 Pulse 102 H 07/01/19 08:00 Resp 18 07/01/19 08:00 BP 96/55 07/01/19 08:00 Pulse Ox 92 L 07/01/19 08:00 Intake & Output 06/30/19 07/01/19 07/01/19 18:59 06:59 18:59 Intake Total 240 Output Total 650 1490 Balance -650 -1250 Weight 67.2 kg Intake: Oral 240 Output: Urine 650 1490 Other: Voiding Method Toilet Toilet # Voids 1 2 # Bowel Movements 0 - Exam PHYSICAL EXAMINATION: GENERAL: 83-year-old female in no acute distress at the time of my examination HEENT: Head is atraumatic, normocephalic. Pupils equal, round. Sclera anicteric. Conjunctiva are clear. Mucous membranes of the mouth are moist. Neck is supple. There is no elevated jugular venous pressure. No carotid bruit is heard. HEART EXAMINATION: R S1 and S2 irregularly irregular a systolic murmur is heard CHEST EXAMINATION: Lungs are clear to auscultation and precussion. No chest wall tenderness is noted on palpation or with deep breathing. ABDOMEN: Soft, nontender. Bowel sounds are heard. No organomegaly noted. EXTREMITIES: 2+ peripheral pulses with no evidence of peripheral edema and no calf tenderness noted. NEUROLOGIC patient is awake, alert and oriented 3 . - Labs CBC & Chem 7: 06/26/19 10:37 06/30/19 05:48 Assessment and Plan Plan: IMPRESSION and plan: #1 Progressive dyspnea and weight gain secondary to acute CHF exacerbation secondary to diastolic dysfunction, improving #2 recent LATISHA showing preserved LV systolic function #3 History of atrial fibrillation, persistent, rates in the 90s to 100s, anticoagulated with eliquis #4 COPD #5 Hypertension #6 CAD status post CABG #7 history of mitral valve repair #8 Former smoker Plan Cardiology's perspective, we will continue this patient on her current medications. Plan for possible discharge home in 24 hours if stable. Check lytes BUN and creatinine. DNP note has been reviewed, I agree with a documented findings and plan of care. Patient was seen and examined.
[2019-07-01 12:35] VITALS: BP 103/61; PULSE 106; TEMP 97.6
[2019-07-01 13:28] LABS: Calcium 9.5 mg/dL (8.4-10.2); Potassium 3.4 mmol/L (3.5-5.1)
--- NOTE | 2019-07-01 19:58 | P.DS ---
Providers Date of admission: 06/26/19 10:19 Expected date of discharge: 07/01/19 Attending physician: Eugenio Webster Consults: 06/26/19 10:07 Consult Physician Stat Consulting Provider: Alfonso Herron Consult Reason/Comments: CHF Do you want consulting provider notified?: Already Contacted Placement Type Exists?: Yes [facility] Course: Chief Complaint: Short of breath History of presenting complaint: This is a very pleasant 83-year-old patient follows with PCP Dr. Quinonez and supervisor crack off Dr. Herron. Chronic stable medical conditions include, atrial fibrillation depression, COPD, hypertension, coronary artery disease. Patient was sent in from the office of Dr. Merritt after patient progressively has been getting more and more short of breath. No bruits uses 3-4 pillows sometimes even sits up and sleeps. Very slight cough. No fever no chills. Increasing swelling of the lower extremity. Going up to the thighs. Short of breath at rest. Decided to come in. No chest pain. Admitted with-acute CHF exacerbation. Atrial fibrillation-uncontrolled. Started on Lasix drip. Started on beta blockers. Today-doing well. On oral Lasix. Up to the bathroom and back. Care was discussed with the patient. Consultation: [facility] Physical examination: VITAL SIGNS: 97.6, 100, 18, 103/61, 93% on room air GENERAL: Sitting at the edge of the bed, eating, breathing much improved EYES: Pupils equal. Conjunctiva normal. HEENT: External appearance of nose and ears normal, oral cavity grossly normal. NECK: JVD raised; masses not palpable. HEART: Heart sounds irregular; no edema. LUNGS: Respiratory rate normal; decreased at bases. ABDOMEN: Soft, nontender, liver spleen not palpable, no masses palpable. PSYCH: Alert and oriented x3; mood and affect slightly anxiousl. 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 INVESTIGATIONS, reviewed in the clinical context: Potassium 3.8 creatinine 0.97 Chest x-ray film personally reviewed by me-pleural effusion, lung stiles better Previous testing White count 6.1 hemoglobin 12.5 potassium 3.6 bun 23 creatinine 1.11 proBNP 4790 TSH 1.4 Chest x-ray film personally reviewed by me-cardiomegaly pleural effusion left greater than right and venous prominence Assessment: -Acute on chronic congestive heart failure exacerbation, from diastolic dy sfunction, with recent LATISHA showing preserved LV function.(Exact EF not known), POA, -Coronary artery disease a prior history of coronary bypass -Persistent atrial fibrillation, heart rate now controlled. chronically on eliquis -COPD -Essential hypertension -Moderate mitral regurgitation, severe tricuspid regurgitation Plan: Home Patient Condition at Discharge: Stable Plan - Discharge Summary Discharge Rx Participant: No New Discharge Prescriptions: New Spironolactone [Aldactone] 50 mg PO DAILY #30 tab Melatonin 3 mg PO HS PRN tablet PRN Reason: Insomnia Continue Ferrous Sulfate [Iron (65 MG Elemental)] 325 mg PO DAILY Famotidine [Pepcid] 20 mg PO BID Atorvastatin [Lipitor] 10 mg PO HS Apixaban [Eliquis] 2.5 mg PO BID Potassium Chloride [Klor-Con 20] 20 meq PO DAILY Changed Furosemide [Lasix] 60 mg PO BID #0 Metoprolol Tartrate [Lopressor] 100 mg PO BID #0 Discontinued Diltiazem HCl 60 mg PO Q8H Discharge Medication List Apixaban [Eliquis] 2.5 mg PO BID 06/07/19 [History] Atorvastatin [Lipitor] 10 mg PO HS 06/07/19 [History] Famotidine [Pepcid] 20 mg PO BID 06/07/19 [History] Ferrous Sulfate [Iron (65 MG Elemental)] 325 mg PO DAILY 06/07/19 [History] Potassium Chloride [Klor-Con 20] 20 meq PO DAILY 06/07/19 [History] Furosemide [Lasix] 60 mg PO BID #0 07/01/19 [Rx] Melatonin 3 mg PO HS PRN tablet 07/01/19 [Rx] Metoprolol Tartrate [Lopressor] 100 mg PO BID #0 07/01/19 [Rx] Spironolactone [Aldactone] 50 mg PO DAILY #30 tab 07/01/19 [Rx] Follow up Appointment(s)/Referral(s): pcpdr [Other] - 1 Week [facility], [NON-STAFF] - Alfonso Herron MD [STAFF PHYSICIAN] - 1 Week Patient Instructions/Handouts: Heart Failure (ER) Activity/Diet/Wound Care/Special Instructions: bmp - 3 days Discharge Disposition: HOME SELF-CARE
== END 2019-06-30 14:30 | disposition home or self-care (01) | DRG 292 ==
LOC: 3SCARD 10:19
PROVIDERS: ADMIT Hospitalist; ATTEND Hospitalist
DX: I11.0 Hypertensive heart disease with heart failure (principal); I48.19 Other persistent atrial fibrillation; I50.33 Acute on chronic diastolic (congestive) heart failure; I08.1 Rheumatic disorders of both mitral and tricuspid valves; F32.9 Major depressive disorder, single episode, unspecified; I25.10 Atherosclerotic heart disease of native coronary artery without angina pectoris; J44.9 Chronic obstructive pulmonary disease, unspecified; Z79.01 Long term (current) use of anticoagulants; Z79.899 Other long term (current) drug therapy; Z87.891 Personal history of nicotine dependence; Z95.1 Presence of aortocoronary bypass graft
CPT/HCPCS: 71046; 80048; 80053; 83735; 83880; 84100; 84443; 85027; 87324